=== PATIENT | female | born 1995 | race Caucasian/White ===

== ENCOUNTER 2016-09-28 16:07 | Emergency (ER) | payer OTHER ==
[2016-09-28] MEDS ORDERED: AZITHROMYCIN 250 MG TAB ONE (16:54)
[2016-09-28] MEDS ORDERED: ONDANSETRON ODT 4 MG TAB ONE (16:54)
== END 2016-09-28 20:01 | disposition home or self-care (01) ==
LOC: ER 16:07 → EEVIPCON 16:07 → ER 20:01
DX: T74.21XA Adult sexual abuse, confirmed, initial encounter (principal)